=== PATIENT | female | born 1945 | race Caucasian/White ===

== ENCOUNTER 2017-06-21 10:53 | Inpatient (IN) | payer MEDICARE, OTHER ==
[~2017-06-21] VITALS: Ht 167.6 cm; Wt 81.8 kg
[~2017-06-21 10:53] MED LIST: ASPI-496 PO; DOCU-131 PO; ESOM40CA PO; LEVO50TA5 PO; LOSA1TAB25 PO; NEXIUM PO; OXYC-302 PO; ROSU10TA PO
[2017-06-21 11:49] LABS: BASOPHILS # (AUTO) 0.05 x10^3/uL (0-0.1); BASOPHILS % (AUTO) 1 % (0-1); EOSINOPHILS # (AUTO) 0.23 x10^3/uL (0-0.4); EOSINOPHILS % (AUTO) 4 % (1-7); LYMPHOCYTES # (AUTO) 1.73 x10^3/uL (1-3.4); LYMPHOCYTES % (AUTO) 30 % (22-44); MD NO; MEAN CORPUSCULAR HEMOGLOBIN 28.2 pg (27.0-34.8); MEAN CORPUSCULAR VOLUME 85.5 fL (80-100); MEAN PLATELET VOLUME 7.7 fL (7.4-10.4); MONOCYTES # (AUTO) 0.32 x10^3/uL (0.2-0.8); MONOCYTES % (AUTO) 6 % (2-9); NEUTROPHILS # (AUTO) 3.44 x10^3/uL (1.8-6.8); NEUTROPHILS % (AUTO) 60 % (42-75); PLATELET COUNT 207 x10^3/uL (130-400); RED BLOOD COUNT 4.74 x10^6/uL (3.82-5.3); RED CELL DISTRIBUTION WIDTH 14.9 % (9.6-15.2)
[2017-06-21 11:55] LABS: ALBUMIN 3.8 g/dL (3.4-5.0); ANION GAP 12 mmol/L (5-15); CALCIUM 9.1 mg/dL (8.5-10.1); CHLORIDE 109 mmol/L (98-107)
[2017-06-21 12:00] LABS: CREATININE 0.75 mg/dL (0.55-1.02); TROPONIN I < 0.015 ng/mL (0.000-0.045)
[2017-06-21] MEDS ORDERED: OMNIPAQUE 350 MG/ML, 100ML BOTTLE ONE (12:38)
[2017-06-21] MEDS ORDERED: HEPARIN 5,000 UNITS/ML, 1ML IV ONE (13:00)
[2017-06-21] MEDS ORDERED: HEPARIN 25,000 UNITS/500ML PMX 500 ML IV PRN (13:00)
[2017-06-21] MEDS ORDERED: HEPARIN 5,000 UNITS/ML, 1ML IV PRN (13:00)
[2017-06-21] MEDS ORDERED: POLYETHYLENE GLYCOL 17 GM PACKET PO PRN (13:30)
[2017-06-21] MEDS ORDERED: ACETAMINOPHEN 325 MG TABLET PO PRN (13:30)
[2017-06-21] MEDS ORDERED: RIVAROXABAN 15 MG TABLET PO ONE (13:30)
[2017-06-21] MEDS ORDERED: DOCUSATE 100 MG CAPSULE PO PRN (13:30)
[2017-06-21 14:17] VITALS: BP 177/80
[2017-06-21 14:40] VITALS: BP 177/80
[2017-06-21] MEDS ORDERED: LOSARTAN 50MG TABLET PO ONE (16:30)
[2017-06-21] MEDS: RIVAROXABAN 15 MG TABLET PO SCH (16:52)
[2017-06-21 19:49] VITALS: BP 145/81
[2017-06-21] MEDS: SODIUM CHLORIDE FLUSH 10ML SYR IVF SCH (21:00)
[2017-06-21] MEDS: TEMAZEPAM 15 MG CAPSULE PO PRN (21:32)
[2017-06-22 02:15] VITALS: BP 100/65
[2017-06-22 06:54] VITALS: BP 138/81
[2017-06-22] MEDS: RIVAROXABAN 15 MG TABLET PO SCH ×2 (08:13→17:35)
[2017-06-22] MEDS: PANTOPRAZOLE 20MG TABLET PO SCH (08:13)
[2017-06-22] MEDS: LEVOTHYROXINE 50 MCG TABLET PO SCH (08:14)
[2017-06-22] MEDS: LOSARTAN 50MG TABLET PO SCH (08:14)
[2017-06-22] MEDS: SODIUM CHLORIDE FLUSH 10ML SYR IVF SCH ×2 (08:15→21:39)
[2017-06-22 12:41] VITALS: BP 133/84
[2017-06-22 19:06] VITALS: BP 107/71
[2017-06-22] MEDS ORDERED: MORPHINE SULFATE 4 MG/ML, 1ML IVPush PRN (21:30)
[2017-06-22] MEDS: TEMAZEPAM 15 MG CAPSULE PO PRN (22:48)
[2017-06-22 22:51] LABS: TROPONIN I < 0.015 ng/mL (0.000-0.045)
[2017-06-23 00:31] VITALS: BP 105/66
[2017-06-23 05:02] LABS: TROPONIN I < 0.015 ng/mL (0.000-0.045)
[2017-06-23 07:32] VITALS: BP 119/75
[2017-06-23] MEDS: LEVOTHYROXINE 50 MCG TABLET PO SCH (08:37)
[2017-06-23] MEDS: PANTOPRAZOLE 20MG TABLET PO SCH (08:37)
[2017-06-23] MEDS: SODIUM CHLORIDE FLUSH 10ML SYR IVF SCH (08:37)
[2017-06-23] MEDS: RIVAROXABAN 15 MG TABLET PO SCH (08:37)
[2017-06-23] MEDS: LOSARTAN 50MG TABLET PO SCH (08:37)
[2017-06-23] MEDS ORDERED: RIVA15TA PO (12:59)
== END 2017-06-23 14:00 | disposition home health service (06) | DRG 176 ==
LOC: ED 12:58 → EDIP 12:59 → ED 13:41 → 4EST 13:55
PROVIDERS: ADMIT Internal Medicine; ATTEND Internal Medicine
DX: I26.99 Other pulmonary embolism without acute cor pulmonale (principal); E03.9 Hypothyroidism, unspecified; I10 Essential (primary) hypertension; E78.5 Hyperlipidemia, unspecified; K44.9 Diaphragmatic hernia without obstruction or gangrene; M79.7 Fibromyalgia; R09.02 Hypoxemia; Z79.01 Long term (current) use of anticoagulants; Z80.3 Family history of malignant neoplasm of breast; Z82.3 Family history of stroke; Z82.49 Family history of ischemic heart disease and other diseases of the circulatory system; Z85.828 Personal history of other malignant neoplasm of skin; Z83.3 Family history of diabetes mellitus; Z90.710 Acquired absence of both cervix and uterus; Z79.899 Other long term (current) drug therapy; Z84.1 Family history of disorders of kidney and ureter
CPT/HCPCS: 36415; 71045; 71275; 80048; 81240; 81241; 82040; 83880; 84484; 85025; 85300; 85303; 85306; 85520; 85613; 85670; 85705; 85732; 86147; 93005; 93306; 99285; Q9967

== ENCOUNTER → 2018-04-17 | Outpatient (CLI) | payer MEDICARE, OTHER ==
[~2018-04-17] MED LIST changes: +OMNIPAQUE 350 MG/ML, 100ML BOTTLE ONE; +RIVA15TA PO
[2018-04-17 16:13] LABS: CREATININE 0.79 mg/dL (0.55-1.02)
== END | disposition home or self-care (01) ==
LOC: RAD 15:16
PROVIDERS: ATTEND Internal Medicine
DX: K44.9 Diaphragmatic hernia without obstruction or gangrene (principal)
CPT/HCPCS: 36415; 71275; 82565; Q9967

== ENCOUNTER 2020-07-05 19:17 | Emergency (ER) | payer MEDICARE, OTHER ==
[~2020-07-05] VITALS: Ht 167.6 cm; Wt 71.8 kg
[~2020-07-05 19:17] MED LIST changes: -OMNIPAQUE 350 MG/ML, 100ML BOTTLE ONE; -OXYC-302 PO; +OXYC1TAB14 PO; -ROSU10TA PO; +ROSU10TA2 PO
[2020-07-05 19:19] VITALS: BP 150/69
[2020-07-05] MEDS ORDERED: DIPH,PERTUSS(ACELL),TET VAC/PF 0.5 ML IM-VACC ONE ×2 (20:00→20:20)
[2020-07-05] MEDS ORDERED: LIDOCAINE-MPF 1%, 5ML INFIL ONE (20:00)
[2020-07-05] MEDS ORDERED: L.E.T SOLUTION TP ONE ×2 (20:00→20:21)
[2020-07-05] MEDS ORDERED: LIDOCAINE-MPF 1%, 5ML ONE ×2 (20:20→20:34)
--- NOTE | 2020-07-05 20:31 | NUR ---
LET APPLIED AT 2023. TDAP VACCINE ADMIN. LIDO PULLED FOR ERP ADMIN.
--- NOTE | 2020-07-05 20:49 | NUR ---
CT DELAYED D/T ERPA AT BEDSIDE FOR SUTURES. WILL NOTIFY CT WHEN PT READY.
--- NOTE | 2020-07-05 21:11 | NUR ---
CT NOTIFIED PT READY FOR CT.
[2020-07-05] MEDS ORDERED: NEOSPORIN OINT. PKT 1 PACKET ONE (21:40)
== END 2020-07-05 22:11 | disposition home or self-care (01) ==
LOC: ED 19:30
DX: S92.044A Nondisplaced other fracture of tuberosity of right calcaneus, initial encounter for closed fracture (principal); S51.811A Laceration without foreign body of right forearm, initial encounter; E78.5 Hyperlipidemia, unspecified; I10 Essential (primary) hypertension; Z86.39 Personal history of other endocrine, nutritional and metabolic disease; W01.0XXA Fall on same level from slipping, tripping and stumbling without subsequent striking against object, initial encounter; Y93.89 Activity, other specified; Y92.89 Other specified places as the place of occurrence of the external cause; Y99.8 Other external cause status
CPT/HCPCS: 12002; 90471; 90715; 99284